=== PATIENT | female | born 1990 | race Hispanic/Latino ===

== ENCOUNTER 2017-04-15 12:41 | Emergency (ER) | payer BC, OTHER ==
[2017-04-15 13:09] VITALS: BP 127/84; PULSE 97; RESP 16; TEMP 98.1; O2SAT 100
--- NOTE | 2017-04-15 13:17 | ED PDOC ---
HPI: General Adult Time Seen by Provider: 04/15/17 13:00 Chief Complaint (Nursing): Flu-like Symptoms Chief Complaint (Provider): Flu-like Symptoms History Per: Patient History/Exam Limitations: no limitations Onset/Duration Of Symptoms: Days (x2 days) Current Symptoms Are (Timing): Still Present Additional Complaint(s): 26 y/o female presented to the ED complaining of mild cough, body aches, fatigue, runny nose, and chills, started yesterday and got worse today. Patient notes taking Tylenol and Dayquil with no relief. Denies fever, nausea, vomiting , diarrhea or any further medical complaints. PMD: Joss Aviles MD Past Medical History Reviewed: Historical Data, Nursing Documentation, Vital Signs Vital Signs: Last Vital Signs Temp 98.1 F 04/15/17 13:04 Pulse 97 H 04/15/17 13:04 Resp 16 04/15/17 13:04 BP 127/84 04/15/17 13:04 Pulse Ox 100 04/15/17 13:22 - Medical History PMH: Anemia, Anxiety - Surgical History Surgical History: Appendectomy - Family History Family History: States: Unknown Family Hx - Social History Current smoker - smoking cessation education provided: No (Never smoked) Alcohol: None Drugs: Denies - Home Medications Home Medications: Ambulatory Orders Medication Instructions Recorded Ibuprofen [Motrin] 600 mg PO Q8 PRN #21 tab 04/15/17 Oseltamivir Phosphate [Tamiflu] 75 mg PO BID #9 capsule 04/15/17 Promethazine/Codeine 5 ml PO DAILY PRN #100 ml 04/15/17 [Codeine/Promethazine 10 MG/5 Ml-6.25 MG/5 Ml] - Allergies Allergies/Adverse Reactions: Allergies Allergy/AdvReac Type Severity Reaction Status Date / Time nitrofurantoin Allergy URTICARIA Verified 04/15/17 13:13 [From Macrobid] Penicillins Allergy URTICARIA Verified 04/15/17 13:13 Sulfa (Sulfonamide Allergy URTICARIA Verified 04/15/17 13:13 Antibiotics) Review of Systems ROS Statement: Except As Marked, All Systems Reviewed And Found Negative (As per HPI, otherwise negative) Constitutional: Positive for: Chills, Other (body aches and fatigue). Negative for: Fever ENT: Positive for: Nose Discharge (Runy nose) Respiratory: Positive for: Cough Gastrointestinal: Negative for: Nausea, Vomiting, Diarrhea Physical Exam - Reviewed Nursing Documentation Reviewed: Yes Vital Signs Reviewed: Yes - Physical Exam Appears: Positive for: Well, Non-toxic, No Acute Distress Head Exam: Positive for: ATRAUMATIC, NORMAL INSPECTION, NORMOCEPHALIC Skin: Positive for: Normal Color, Warm, Dry Eye Exam: Positive for: Normal appearance ENT: Positive for: Normal ENT Inspection Neck: Positive for: Normal, Painless ROM, Supple Cardiovascular/Chest: Positive for: Regular Rate, Rhythm. Negative for: Murmur Respiratory: Positive for: Normal Breath Sounds (CTAB) Gastrointestinal/Abdominal: Positive for: Normal Exam Back: Positive for: Normal Inspection Extremity: Positive for: Normal ROM Neurologic/Psych: Positive for: Alert, Oriented (x3) - ECG O2 Sat by Pulse Oximetry: 100 (RA) Pulse Ox Interpretation: Normal - Progress ED Course And Treament: INFLUENZA A/B NEG PATIENT OFFERED TAMIFLU FOR FLU-LIKE ILLNESS. TAMIFLU 75 MG X 1 DOSE IN ED Medical Decision Making Medical Decision Making: Time: 13:21 Plan: Influenza A B Scribe Attestation: Documented by Mari Medina acting as a scribe for PA. ANDRA Daily Scribe Attestation: All medical record entries made by the Scribe were at my direction and personally dictated by me. I have reviewed the chart and agree that the record accurately reflects my personal performance of the history, physical exam, medical decision making, and the department course for this patient. I have also personally directed, reviewed, and agree with the discharge instructions and disposition. Disposition - Clinical Impression Clinical Impression: Influenza-like symptoms - Patient ED Disposition Is Patient to be Admitted: No - Disposition Disposition: Routine/Home Disposition Time: 13:57 Condition: FAIR Prescriptions: Ibuprofen [Motrin] 600 mg PO Q8 PRN #21 tab PRN Reason: Fever >100.4 F Oseltamivir Phosphate [Tamiflu] 75 mg PO BID #9 capsule Promethazine/Codeine [Codeine/Promethazine 10 MG/5 Ml-6.25 MG/5 Ml] 5 ml PO DAILY PRN #100 ml PRN Reason: Cough Instructions: Influenza (ED) Forms: [employer] (Irish), [facility] ED School/Work Excuse
== END 2017-04-15 14:19 | disposition home or self-care (01) ==
LOC: H.ER 12:41
DX: R05 Cough (principal); R53.83 Other fatigue; F41.9 Anxiety disorder, unspecified; Z88.0 Allergy status to penicillin

== ENCOUNTER 2017-10-06 15:21 | Emergency (ER) | payer BC, OTHER ==
[2017-10-06 15:26] VITALS: BP 142/88; PULSE 74; RESP 16; TEMP 98.3; O2SAT 97
[2017-10-06 16:28] LABS: BASO % 0.8 % (0.0-2.0); EOS # 0.2 K/uL (0.0-0.7); EOS % 3.9 % (0.0-4.0); HEMOGLOBIN 14.2 g/dL (12.0-16.0); LYMPH # 1.6 K/uL (1.0-4.3); LYMPH % 28.2 % (20.0-40.0); MEAN CELL VOLUME 97.7 fl (81.0-99.0); MEAN CORPUSCULAR HEMOGLOBIN 33.3 pg (27.0-31.0); MEAN CORPUSCULAR HGB CONC 34.1 g/dL (33.0-37.0); MEAN PLATELET VOLUME 7.2 fl (7.2-11.7); MONO # 0.6 K/uL (0.0-0.8); MONO % 11.2 % (0.0-10.0); NEUT # 3.2 K/uL (1.8-7.0); NEUT % 55.9 % (50.0-75.0); NRBC % 0.1 % (0.0-0.0); RBC 4.26 Mil/uL (3.80-5.20); RED CELL DISTRIBUTION WIDTH 12.9 % (11.5-14.5); WHITE BLOOD COUNT 5.8 K/uL (4.8-10.8)
--- NOTE | 2017-10-06 16:32 | ED PDOC ---
Lower Extremity Pain/Injury Time Seen by Provider: 10/06/17 15:51 Chief Complaint (Nursing): Lower Extremity Problem/Injury Chief Complaint (Provider): BLE pain History Per: Patient Additional Complaint(s): Pt reports BLE pain X 6 days and LLE swelling X 2 days. Denies paresthesias, weakness, CP, SOB, palpitations, recent travel, immobility, OCP use. Past Medical History Reviewed: Nursing Documentation, Vital Signs Vital Signs: Last Vital Signs Temp 98.3 F 10/06/17 15:22 Pulse 74 10/06/17 15:22 Resp 16 10/06/17 15:22 BP 142/88 10/06/17 15:22 Pulse Ox 97 10/06/17 15:22 - Medical History PMH: Anemia, Anxiety, Back Problems - Surgical History Surgical History: Appendectomy - Family History Family History: States: Unknown Family Hx - Social History Current smoker - smoking cessation education provided: No - Home Medications Home Medications: Ambulatory Orders Medication Instructions Recorded Ibuprofen [Motrin] 600 mg PO Q8 PRN #21 tab 04/15/17 Oseltamivir Phosphate [Tamiflu] 75 mg PO BID #9 capsule 04/15/17 Promethazine/Codeine 5 ml PO DAILY PRN #100 ml 04/15/17 [Codeine/Promethazine 10 MG/5 Ml-6.25 MG/5 Ml] Naproxen [Naprosyn] 500 mg PO BID PRN #15 tablet 10/06/17 - Allergies Allergies/Adverse Reactions: Allergies Allergy/AdvReac Type Severity Reaction Status Date / Time nitrofurantoin Allergy URTICARIA Verified 10/06/17 15:22 [From Macrobid] Penicillins Allergy URTICARIA Verified 10/06/17 15:22 Sulfa (Sulfonamide Allergy URTICARIA Verified 10/06/17 15:22 Antibiotics) Wells Criteria for PE - Wells Criteria for Pulmonary Embolism Clinical Signs and Symptoms of DVT: No P.E is #1 Diagnosis, or Equally Likely: No Heart Rate >100: No Immobilization at least 3 days;Surgery previous 4 weeks: No Previous, objectively diagnosed PE or DVT: No Hemoptysis: No Malignancy w/treatment within 6 months, or palliative: No Total Score: 0 Review of Systems Constitutional: Negative for: Fever, Chills Cardiovascular: Negative for: Chest Pain, Palpitations Respiratory: Negative for: Cough, Shortness of Breath Musculoskeletal: Positive for: Leg Pain. Negative for: Neck Pain, Back Pain Skin: Negative for: Rash, Lesions Neurological: Negative for: Weakness, Numbness, Headache Physical Exam - Reviewed Nursing Documentation Reviewed: Yes Vital Signs Reviewed: Yes - Physical Exam Appears: Positive for: Well, No Acute Distress Head Exam: Positive for: ATRAUMATIC, NORMAL INSPECTION Skin: Positive for: Normal Color, Warm, Dry Cardiovascular/Chest: Positive for: Regular Rate, Rhythm Respiratory: Positive for: Normal Breath Sounds. Negative for: Rales, Rhonchi, Wheezing Back: Positive for: Normal Inspection Extremity: Positive for: Normal ROM, Capillary Refill (<2 sec). Negative for: Tenderness, Pedal Edema, Calf Tenderness, Deformity, Swelling - Laboratory Results Result Diagrams: 10/06/17 16:20 10/06/17 16:20 - ECG O2 Sat by Pulse Oximetry: 97 Medical Decision Making Medical Decision Makin yo female with BLE pain and LLE swelling. - labs - Doppler ultrasound Accession No. : [id number] Patient Name / ID : JOAQUINA HERRERA / [id number] Exam Date : 10/06/2017 16:39:16 ( Approved ) Study Comment : Sex / Age : F / 27Y Creator : Rebel Butts MD Dictator : Rebel Butts MD Secure Software Assessor : Press Leader : Rebel Butts MD Approver2 : Report Date : 10/07/2017 13:48:41 My Comment : PROCEDURE: Bilateral lower extremity venous duplex Doppler. HISTORY: BLE pain, LLE swelling COMPARISON: None available. TECHNIQUE: Bilateral common femoral, superficial femoral, popliteal and posterior tibial veins were evaluated. Flow was assessed with color Doppler, compressibility, assessment of phasic flow and augmentation response. FINDINGS: COMMON FEMORAL VEIN: Right CFV: Unremarkable. Left CFV: Unremarkable. SUPERFICIAL FEMORAL VEIN: Right SFV: Unremarkable. Left SFV: Unremarkable. POPLITEAL VEIN: Right Popliteal: Unremarkable. Left Popliteal: Unremarkable. POSTERIOR TIBIAL VEIN: Right PTV: Unremarkable. Left PTV: Unremarkable. OTHER FINDINGS: None. IMPRESSION: No evidence of deep venous thrombosis. Disposition - Clinical Impression Clinical Impression: Leg pain, bilateral - Disposition Disposition: Routine/Home Disposition Time: 18:45 Condition: STABLE Additional Instructions: FOLLOW-UP WITH PMD WITHIN 2 DAYS FOR REEVALUATION. Prescriptions: Naproxen [Naprosyn] 500 mg PO BID PRN #15 tablet PRN Reason: Pain, Moderate (4-7) Instructions: Muscle and Bone Pain (DC) Forms: [facility] (Serbian)
[2017-10-06 16:37] LABS: ALB/GLOB RATIO 1.3 (1.0-2.1); ALBUMIN 4.8 g/dL (3.5-5.0); ALT/SGPT 33 U/L (9-52); AST/SGOT 28 U/L (14-36); BLOOD UREA NITROGEN 10 mg/dl (7-17); CALCIUM 9.6 mg/dL (8.4-10.2); GFR AFRICAN-AMERICAN > 60; GFR NON-AFRICAN AMERICAN > 60
[2017-10-06 17:57] LABS: PARTIAL THROMBOPLASTIN TIME 28.8 Seconds (25.6-37.1); PROTHROMBIN TIME 10.8 Seconds (9.8-13.1)
--- NOTE | 2017-10-07 13:50 | US ---
PROCEDURE: Bilateral lower extremity venous duplex Doppler. HISTORY: BLE pain, LLE swelling COMPARISON: None available. TECHNIQUE: Bilateral common femoral, superficial femoral, popliteal and posterior tibial veins were evaluated. Flow was assessed with color Doppler, compressibility, assessment of phasic flow and augmentation response. FINDINGS: COMMON FEMORAL VEIN: Right CFV: Unremarkable. Left CFV: Unremarkable. SUPERFICIAL FEMORAL VEIN: Right SFV: Unremarkable. Left SFV: Unremarkable. POPLITEAL VEIN: Right Popliteal: Unremarkable. Left Popliteal: Unremarkable. POSTERIOR TIBIAL VEIN: Right PTV: Unremarkable. Left PTV: Unremarkable. OTHER FINDINGS: None. IMPRESSION: No evidence of deep venous thrombosis. Concordant results (preliminary interpretation) provided by [facility]. Procedure Completed: 16:52 Preliminary ([facility]) Report: Dictated and Authenticated: 17:21 Final Interpretation: 13:48 October 07, 2017.
== END 2017-10-06 19:02 | disposition home or self-care (01) ==
LOC: H.ER 15:21
DX: R22.43 Localized swelling, mass and lump, lower limb, bilateral (principal); M79.605 Pain in left leg; M79.604 Pain in right leg; F41.9 Anxiety disorder, unspecified; Z88.0 Allergy status to penicillin